=== PATIENT | female | born 1990 | race Caucasian/White ===

== ENCOUNTER 2020-04-27 10:56 | Outpatient (CLI) | payer BC ==
--- NOTE | 2020-04-27 11:53 | CT ---
CT abdomen and pelvis with IV contrast HISTORY: Abdomen pain. Nausea vomiting. FINDINGS: The lung bases are clear. Postoperative changes of the stomach with the appearance of prior bariatric surgery. Gallbladder is surgically absent. Solid organs are intact. No evidence of bowel obstruction or inflammation. Appendix not visualized, possibly surgically absent . Nonenlarged, reactive appearing mesenteric lymph nodes within the right lower quadrant. Follicles of the ovaries. Physiologic amount of free fluid within the cul-de-sac. IMPRESSION : No acute abnormalities are demonstrated.
[2020-04-27] MEDS ORDERED: Iopamidol-370 76% 500 ML 1 ML ONE (14:22)
== END 2020-04-27 10:57 | disposition home or self-care (01) ==
LOC: BICCT 10:56
PROVIDERS: ATTEND Family Medicine
DX: R10.13 Epigastric pain (principal); R11.2 Nausea with vomiting, unspecified; R31.29 Other microscopic hematuria
CPT/HCPCS: 74177; Q9967

== ENCOUNTER 2021-10-17 10:34 | Outpatient (CLI) | payer OTHER ==
[2021-10-17] MEDS ORDERED: Magnevist 469MG/ML 20 ML VIAL ONE (14:47)
== END 2021-10-17 10:35 | disposition home or self-care (01) ==
LOC: MRI 10:34
PROVIDERS: ATTEND Internal Medicine
DX: R10.10 Upper abdominal pain, unspecified (principal); Z87.19 Personal history of other diseases of the digestive system; Z90.3 Acquired absence of stomach [part of]
CPT/HCPCS: 74183; A9579